=== PATIENT | male | born 1980 | race Caucasian/White ===

== ENCOUNTER 2021-04-26 01:45 | Emergency (ER) | payer SELFPAY ==
[2021-04-26 02:53] LABS: HEMOGLOBIN 15.6 gm/dl (14.0-17.5); RED BLOOD COUNT 4.76 M/UL (4.20-5.50); WHITE BLOOD COUNT 8.1 K/UL (4.5-11.0)
[2021-04-26 03:23] LABS: BUN/CREATININE RATIO 15 (0-10)
== END 2021-04-26 02:30 | disposition home or self-care (01) ==
LOC: ER1 01:45
PROVIDERS: Physician Assistant
DX: M54.2 Cervicalgia (principal); R44.1 Visual hallucinations; F41.9 Anxiety disorder, unspecified; F17.210 Nicotine dependence, cigarettes, uncomplicated
CPT/HCPCS: 80053; 80307; 83735; 85025; 99283; G0480